=== PATIENT | female | born 1980 ===

== ENCOUNTER 2023-01-05 12:00 | Inpatient (IN) | payer OTHER ==
[~2023-01-05] VITALS: Ht 162.6 cm; Wt 58.1 kg
[2023-01-05] MEDS ORDERED: SYNTHROID88 MCG PO (15:12)
[2023-01-05] MEDS ORDERED: ANASTROZOLE1 MG PO (15:12)
[2023-01-05] MEDS ORDERED: LEXAPRO5 MG PO (15:13)
[2023-01-05] MEDS ORDERED: LOSARTAN POTASS25 MG PO (15:13)
[2023-01-05] MEDS ORDERED: [UNRECOGNIZED DRUG - OTHER] (15:14)
[2023-01-05] MEDS ORDERED: VITAMIN C100 MG (15:14)
[2023-01-05] MEDS ORDERED: VITAMIN D PO (15:15)
[2023-01-05] MEDS ORDERED: OMEGA 3 PO (15:15)
[2023-01-05] MEDS ORDERED: MAGNESIUM200 MG PO (15:15)
== END 2023-01-09 12:13 | disposition home or self-care (01) | DRG 743 ==
LOC: O/R 01-08 06:12 → SURG 01-08 12:00 → OB/GYN 01-08 16:32
PROVIDERS: ADMIT Obstetrics & Gynecology Gynecologic Oncology; ATTEND Obstetrics & Gynecology Gynecologic Oncology
PROC: 0UT74ZZ Resection of Bilateral Fallopian Tubes, Percutaneous Endoscopic Approach (ICD-10-PCS; 2023-01-08)
PROC: 0UT24ZZ Resection of Bilateral Ovaries, Percutaneous Endoscopic Approach (ICD-10-PCS; 2023-01-08)
PROC: 0UT94ZZ Resection of Uterus, Percutaneous Endoscopic Approach (ICD-10-PCS; principal; 2023-01-08 12:00)
DX: D25.9 Leiomyoma of uterus, unspecified (principal); C50.919 Malignant neoplasm of unspecified site of unspecified female breast; Z15.02 Genetic susceptibility to malignant neoplasm of ovary; Z15.04 Genetic susceptibility to malignant neoplasm of endometrium; Z20.822 Contact with and (suspected) exposure to COVID-19